=== PATIENT | male | born 1965 | race African-American/Black ===

== ENCOUNTER 2024-02-13 00:47 | Emergency (ER) | payer OTHER ==
[2024-02-13] MEDS ORDERED: Lidocaine 1% (PF) 30 ML VIAL ONE (02:17)
[2024-02-13] MEDS ORDERED: Bacitracin 1 PK ONE (02:33)
== END 2024-02-13 02:45 | disposition home or self-care (01) ==
LOC: CSHERS 00:47
DX: S91.112A Laceration without foreign body of left great toe without damage to nail, initial encounter (principal); I10 Essential (primary) hypertension; E11.9 Type 2 diabetes mellitus without complications; Z79.899 Other long term (current) drug therapy; Z79.84 Long term (current) use of oral hypoglycemic drugs; W26.8XXA Contact with other sharp object(s), not elsewhere classified, initial encounter
CPT/HCPCS: 12002; J2001

== ENCOUNTER 2024-02-25 12:55 | Emergency (ER) | payer OTHER | END 2024-02-25 14:20 | disposition home or self-care (01) | LOC: CSHERS 12:55 | DX: S91.112D Laceration without foreign body of left great toe without damage to nail, subsequent encounter (principal); Z48.02 Encounter for removal of sutures; E11.9 Type 2 diabetes mellitus without complications; I10 Essential (primary) hypertension; W26.8XXD Contact with other sharp object(s), not elsewhere classified, subsequent encounter ==

== ENCOUNTER 2025-05-23 20:00 | Emergency (ER) | payer OTHER, SELFPAY ==
[2025-05-23] MEDS ORDERED: Ketorolac Tromethamine 30 MG (1 mL) VIAL ONE (20:56)
[2025-05-23] MEDS ORDERED: Acetaminophen 325 MG TAB ONE (20:57)
[2025-05-23 21:11] LABS: Glucose, Urine (Dipstick) Normal (Negative); Leukocyte Negative (Negative); Protein, Urine (Dipstick) 30 mg/dl (Neg-Trace); Specific Gravity, Urine 1.020 (1.005-1.030)
[2025-05-23 21:17] LABS: #Basophils Less than 0.03 10x3/uL (0.0-0.2); #Eosinophils Less than 0.03 10x3/uL (0.0-0.5); #Monocytes 0.43 10x3/uL (0.0-1.1); #Neutrophils 4.67 10x3/uL (1.5-8.4); %Basophils 0.4 % (0.0-2.0); %Eosinophils 0.0 % (0.0-6.0); %Lymphocytes 9.8 % (18.0-47.0); %Monocytes 7.5 % (0.0-10.0); %Neutrophils 81.8 % (40.0-75.0); Hematocrit 46.1 % (38.8-50.0); Hemoglobin 15.2 g/dL (13.5-17.5); Mean Corpuscular Hemoglobin 28.3 pg (27.0-33.0); Mean Corpuscular Volume 85.7 fL (81.2-95.1); Platelet Count 245 10x3/uL (150-450); Red Blood Cell (RBC) Count 5.38 10x6/uL (4.32-5.72); White Blood Cell (WBC) Count 5.71 10x3/uL (3.5-10.5)
[2025-05-23 21:27] LABS: Bacteria/HPF Rare-Few HPF (None Seen); CAUTI Indications for Culture Fever or rigors; RBC/HPF 0-3 HPF (0-3); WBC/HPF 0-3 HPF (0-3)
[2025-05-23 21:28] LABS: Urine Culture Reflex No No
[2025-05-23 21:35] LABS: ALT (SGPT) 48 U/L (Less than 45); AST (SGOT) 48 U/L (11-34); Albumin 3.9 g/dL (3.1-4.5); Alkaline Phosphatase 48 U/L (40-110); Anion Gap 11 mmol/L (10-20); BUN (Urea Nitrogen) 8 mg/dL (8.4-25.7); Bilirubin, Total 0.9 mg/dL (0.3-1.2); Calc. Creatinine Clearance 0 mL/min (70-130); Calcium 8.9 mg/dL (7.8-10.44); Carbon Dioxide 26 mmol/L (23-31); Chloride 104 mmol/L (98-107); Globulin 3.0 g/dL (2.4-3.5); Glucose 120 mg/dL (80-115); Potassium 3.1 mmol/L (3.5-5.1); Sodium 138 mmol/L (136-145)
== END 2025-05-23 22:24 | disposition home or self-care (01) ==
LOC: CSHERS 20:00
DX: J01.90 Acute sinusitis, unspecified (principal); M79.10 Myalgia, unspecified site; I10 Essential (primary) hypertension; E11.9 Type 2 diabetes mellitus without complications
CPT/HCPCS: 36415; 71045; 80053; 81001; 83605; 85025; 87040; 87428; 96374; J1885